=== PATIENT | male | born 1940 | race Caucasian/White ===

== ENCOUNTER 2021-08-10 09:46 | Day surgery (SDC) | payer MEDICARE, OTHER ==
[2021-08-09 12:30] LABS: BASOPHILS % (AUTO) 0.7 % (0-1); EOSINOPHILS # (AUTO) 0.3 X10'3 (0-0.9); EOSINOPHILS % (AUTO) 6.2 % (0-6); HEMATOCRIT 36.4 % (42.0-52.0); HEMOGLOBIN 11.8 g/dl (14.0-17.9); LYMPHOCYTES % (AUTO) 18.9 % (21-51); MEAN CORPUSCULAR HGB CONC 32.3 g/dL (33.0-36.5); MEAN PLATELET VOLUME 9.3 FL (7.4-10.4); MONOCYTES # (AUTO) 0.5 X10'3 (0-0.9); MONOCYTES % (AUTO) 10.1 % (2-12); NEUTROPHILS # (AUTO) 3.4 X10'3 (1.8-7.7); NEUTROPHILS % (AUTO) 64.1 % (42-75); PLATELET COUNT 186 X10'3 (140-440); RED BLOOD COUNT 3.79 X10'6 (4.70-6.10); RED CELL DISTRIBUTION WIDTH 17.2 % (11.5-14.5); WHITE BLOOD COUNT 5.4 X10'3 (4.5-11.0)
[2021-08-09 12:38] LABS: ALBUMIN 3.6 G/DL (3.4-5.0); ANION GAP 9 (8-16); BLOOD UREA NITROGEN 31 MG/DL (7-18); BUN/CREATININE RATIO 18.2 (5.4-32.0); CALCIUM 8.7 MG/DL (8.5-10.1); CHLORIDE 109 MMOL/L (99-107); GLUCOSE 108 MG/DL (70-104); POTASSIUM 4.6 MMOL/L (3.5-5.1); SODIUM 146 MMOL/L (135-145); TOTAL CARBON DIOXIDE 28.4 MMOL/L (24-32); eGFR 39 ML/MIN
[2021-08-09 12:42] LABS: PARTIAL THROMBOPLASTIN TIME 28 SECONDS (22-32)
[~2021-08-10] VITALS: Ht 190.5 cm; Wt 147.3 kg
[2021-08-10] VITALS (10 sets, daily range): BP systolic 133–164; BP diastolic 45–96
[2021-08-10] MEDS ORDERED: LIDOcaine/PRILOcaine 5gm cream TP ONE (09:57)
[2021-08-10] MEDS ORDERED: sodium bicarbonate (8.4%) inj. 150 ML in dextrose 5%-water 1,000 ML IV ONE (10:00)
[2021-08-10] MEDS ORDERED: normal saline 1,000 ML IV SCH (10:00)
[2021-08-10] MEDS ORDERED: LORazepam 0.5 MG tablet PO PRN (10:00)
[2021-08-10] MEDS ORDERED: diphenhydrAMINE 25mg capsule PO PRN (10:00)
[2021-08-10] MEDS ORDERED: acetylcysteine 200 MG/ml 4ml vial PO PRN (10:05)
[2021-08-10] MEDS ORDERED: ATEN25TA PO (10:10)
[2021-08-10] MEDS ORDERED: SIMV-45 PO (10:10)
[2021-08-10] MEDS ORDERED: ALLO300T8 PO (10:10)
[2021-08-10] MEDS ORDERED: HYDR-3972 PO (10:10)
[2021-08-10] MEDS ORDERED: VITAMIN C (10:10)
[2021-08-10] MEDS ORDERED: LEVO200T PO (10:10)
[2021-08-10] MEDS ORDERED: ENAL10TA19 PO (10:10)
[2021-08-10] MEDS ORDERED: POTA10TA36 PO (10:10)
[2021-08-10] MEDS ORDERED: FURO40TA4 PO (10:10)
[2021-08-10] MEDS ORDERED: WARF-55 PO (10:10)
[2021-08-10] MEDS ORDERED: ROPI2TAB7 PO (10:10)
[2021-08-10] MEDS ORDERED: nitroGLYCERIN-Tridil 50MG/D5W 250 ML IV ONE (12:56)
[2021-08-10] MEDS ORDERED: verapamil 2.5 mg/ml inj IV ONE (12:56)
[2021-08-10] MEDS ORDERED: midazolam 1 mg/ML 2ml injection ONE (12:56)
[2021-08-10] MEDS ORDERED: fentaNYL/PF 50MCG/1 ML 2ML syringe ONE (12:56)
[2021-08-10] MEDS ORDERED: iohexol 350MG/ML 100ml bottle IV ONE (12:57)
[2021-08-10] MEDS ORDERED: iohexol 350 MG/ML 50ML vial IV ONE (12:57)
[2021-08-10] MEDS ORDERED: LIDOcaine 1% (10mg/ml)w/preservative injection 20ml MDV ONE (12:57)
[2021-08-10] MEDS ORDERED: heparin 1,000unit/ml 10ml vial 10 ML ONE (12:57)
[2021-08-10] MEDS ORDERED: FLU VACC QS2021-22(6MOS UP)/PF 60 MCG/0.5 ML SYRINGE IM ONE (13:45)
[2021-08-10 15:06] LABS: ISTAT HGB ART 10.5 g/dl (14.0-18.0); ISTAT Hct ART 31 %PCV (42-52); ISTAT O2 SATURATION ARTERIAL 99 % (95-98); ISTAT SOURCE ART
[2021-08-10] MEDS ORDERED: sodium bicarbonate (8.4%) inj. 150 MEQ in dextrose 5%-water 1,000 ML IV ONE (15:35)
[2021-08-15 06:10] LABS: ISTAT Hct MIX 33 %PCV (42-52); ISTAT O2 SATURATION MIX VENOUS 66 % (60-80); ISTAT SOURCE VEN
== END 2021-08-10 20:35 | disposition home or self-care (01) ==
LOC: SSTAY O 09:46
PROVIDERS: ATTEND Internal Medicine Cardiovascular Disease
DX: R94.39 Abnormal result of other cardiovascular function study (principal); I25.10 Atherosclerotic heart disease of native coronary artery without angina pectoris; I10 Essential (primary) hypertension; E78.49 Other hyperlipidemia; I48.20 Chronic atrial fibrillation, unspecified; G47.30 Sleep apnea, unspecified; Z95.0 Presence of cardiac pacemaker; Z99.81 Dependence on supplemental oxygen; Z79.01 Long term (current) use of anticoagulants; Z79.899 Other long term (current) drug therapy; Z98.890 Other specified postprocedural states; Z87.891 Personal history of nicotine dependence; Z96.653 Presence of artificial knee joint, bilateral; Z80.8 Family history of malignant neoplasm of other organs or systems
CPT/HCPCS: 36415; 76937; 80048; 82803; 85014; 85025; 85610; 85730; 93005; 93460; 99152; 99153; C1751; C1760; C1769; C1894; J1644; J2001; J2250; J3010; Q0163; Q9967; A6258; J3490

== ENCOUNTER 2022-04-19 10:32 | Emergency (ER) | payer MEDICARE, OTHER ==
[~2022-04-19] VITALS: Ht 193 cm; Wt 136.4 kg
[~2022-04-19 10:32] MED LIST: ALLO300T8 PO; ATEN25TA PO; ENAL10TA19 PO; FURO40TA4 PO; HYDR-3972 PO; LEVO200T PO; POTA10TA37 PO; ROPI2TAB7 PO; SIMV-45 PO; VITAMIN C; WARF-55 PO
[2022-04-19 11:20] VITALS: BP 156/87
[2022-04-19] MEDS ORDERED: oxymetazoline 15 ML nasal spray NS ONE (11:40)
[2022-04-19] MEDS ORDERED: tranexamic acid 100mg/ml inj. TP ONE (11:40)
[2022-04-19] MEDS ORDERED: silver nitrate applicator stick TP ONE (13:15)
== END 2022-04-19 14:01 | disposition home or self-care (01) ==
LOC: ER 10:32
DX: R04.0 Epistaxis (principal); I48.91 Unspecified atrial fibrillation; Z87.440 Personal history of urinary (tract) infections; Z98.890 Other specified postprocedural states; Z79.899 Other long term (current) drug therapy
CPT/HCPCS: 30901; 99284; J3490

== ENCOUNTER 2022-06-17 11:40 | Emergency (ER) | payer MEDICARE, OTHER ==
[~2022-06-17] VITALS: Ht 195.6 cm; Wt 136.4 kg
[~2022-06-17 11:40] MED LIST changes: +POTA-206 PO; -POTA10TA37 PO
[2022-06-17 12:08] VITALS: BP 143/61
[2022-06-17] MEDS ORDERED: proparacaine 0.5% ophthalmic drops 15ml LEFTEYE ONE (14:50)
[2022-06-17] MEDS ORDERED: erythromycin ophthalmic ointment 1gm tube LEFTEYE ONE (15:50)
[2022-06-17] MEDS ORDERED: ERYT1OIN6 RIGHTEYE (16:37)
== END 2022-06-17 16:53 | disposition home or self-care (01) ==
LOC: ER 11:41
DX: S05.01XA Injury of conjunctiva and corneal abrasion without foreign body, right eye, initial encounter (principal); H57.12 Ocular pain, left eye; I48.91 Unspecified atrial fibrillation; Z87.440 Personal history of urinary (tract) infections; Z98.890 Other specified postprocedural states; Z79.899 Other long term (current) drug therapy; X58.XXXA Exposure to other specified factors, initial encounter; Y93.89 Activity, other specified; Y92.89 Other specified places as the place of occurrence of the external cause; Y99.8 Other external cause status
CPT/HCPCS: 99283

== ENCOUNTER 2022-07-08 14:10 | Emergency (ER) | payer MEDICARE, OTHER ==
[~2022-07-08] VITALS: Ht 190.5 cm; Wt 140.9 kg
[2022-07-08 15:43] LABS: BASOPHILS % (AUTO) 0.4 % (0-1); EOSINOPHILS # (AUTO) 0.1 X10'3 (0-0.9); EOSINOPHILS % (AUTO) 0.6 % (0-6); HEMATOCRIT 30.3 % (42.0-52.0); HEMOGLOBIN 9.7 g/dl (14.0-17.9); LYMPHOCYTES # (AUTO) 0.7 X10'3 (1.1-4.8); LYMPHOCYTES % (AUTO) 6.1 % (21-51); MEAN CORPUSCULAR HEMOGLOBIN 29.3 PG (27.0-31.0); MEAN CORPUSCULAR HGB CONC 32.1 g/dL (33.0-36.5); MEAN CORPUSCULAR VOLUME 91.2 FL (78-98); MEAN PLATELET VOLUME 9.2 FL (7.4-10.4); MONOCYTES # (AUTO) 0.8 X10'3 (0-0.9); MONOCYTES % (AUTO) 7.1 % (2-12); NEUTROPHILS # (AUTO) 10.2 X10'3 (1.8-7.7); NEUTROPHILS % (AUTO) 85.8 % (42-75); PLATELET COUNT 146 X10'3 (140-440); RED BLOOD COUNT 3.32 X10'6 (4.70-6.10); RED CELL DISTRIBUTION WIDTH 16.8 % (11.5-14.5); WHITE BLOOD COUNT 11.9 X10'3 (4.5-11.0)
[2022-07-08 15:54] LABS: ALANINE AMINOTRANSFERASE 27 U/L (12-78); ALBUMIN 3.6 G/DL (3.4-5.0); ALBUMIN/GLOBULIN RATIO 1.2 (1.1-1.5); ALKALINE PHOSPHATASE 82 IU/L (46-116); ANION GAP 11 (8-16); ASPARTATE AMINO TRANSFERASE 19 U/L (10-37); BILIRUBIN,TOTAL 0.8 MG/DL (0.1-1.0); BLOOD UREA NITROGEN 51 MG/DL (7-18); BUN/CREATININE RATIO 19.8 (5.4-32.0); CALCIUM 8.6 MG/DL (8.5-10.1); CHLORIDE 103 MMOL/L (99-107); CREATININE 2.58 MG/DL (0.60-1.10); GLUCOSE 109 MG/DL (70-104); POTASSIUM 4.1 MMOL/L (3.5-5.1); SODIUM 141 MMOL/L (135-145); TOTAL CARBON DIOXIDE 26.7 MMOL/L (24-32); TOTAL PROTEIN 6.7 G/DL (6.4-8.2); eGFR 24 ML/MIN
[2022-07-08 16:03] LABS: MAGNESIUM 2.6 MG/DL (1.5-2.4)
[2022-07-08 19:08] VITALS: BP 128/51
== END 2022-07-08 20:12 | disposition home or self-care (01) ==
LOC: ER 14:11
DX: S93.402A Sprain of unspecified ligament of left ankle, initial encounter (principal); M25.572 Pain in left ankle and joints of left foot; I48.91 Unspecified atrial fibrillation; M19.90 Unspecified osteoarthritis, unspecified site; G89.29 Other chronic pain; Z87.440 Personal history of urinary (tract) infections; Z98.890 Other specified postprocedural states; Z79.899 Other long term (current) drug therapy; X58.XXXA Exposure to other specified factors, initial encounter; Y93.89 Activity, other specified; Y92.89 Other specified places as the place of occurrence of the external cause; Y99.8 Other external cause status
CPT/HCPCS: 29515; 36415; 71045; 73610; 80053; 83735; 83880; 84484; 85025; 93005; 99285

== ENCOUNTER 2022-07-11 21:48 | Emergency (ER) | payer MEDICARE, OTHER ==
[~2022-07-11] VITALS: Ht 193 cm; Wt 136.4 kg
[2022-07-11 22:20] LABS: BASOPHILS % (AUTO) 0.3 % (0-1); EOSINOPHILS % (AUTO) 0.5 % (0-6); HEMATOCRIT 29.8 % (42.0-52.0); HEMOGLOBIN 9.8 g/dl (14.0-17.9); LYMPHOCYTES # (AUTO) 0.6 X10'3 (1.1-4.8); LYMPHOCYTES % (AUTO) 7.4 % (21-51); MEAN CORPUSCULAR HEMOGLOBIN 29.7 PG (27.0-31.0); MEAN CORPUSCULAR VOLUME 90.2 FL (78-98); MEAN PLATELET VOLUME 8.3 FL (7.4-10.4); MONOCYTES # (AUTO) 1.3 X10'3 (0-0.9); MONOCYTES % (AUTO) 16.1 % (2-12); NEUTROPHILS # (AUTO) 5.9 X10'3 (1.8-7.7); NEUTROPHILS % (AUTO) 75.7 % (42-75); PLATELET COUNT 204 X10'3 (140-440); RED BLOOD COUNT 3.31 X10'6 (4.70-6.10); RED CELL DISTRIBUTION WIDTH 16.7 % (11.5-14.5); WHITE BLOOD COUNT 7.8 X10'3 (4.5-11.0)
[2022-07-11 22:33] LABS: ALANINE AMINOTRANSFERASE 45 U/L (12-78); ALBUMIN/GLOBULIN RATIO 0.8 (1.1-1.5); ALKALINE PHOSPHATASE 208 IU/L (46-116); ANION GAP 10 (8-16); ASPARTATE AMINO TRANSFERASE 42 U/L (10-37); BILIRUBIN,TOTAL 0.8 MG/DL (0.1-1.0); BLOOD UREA NITROGEN 56 MG/DL (7-18); CALCIUM 8.9 MG/DL (8.5-10.1); CHLORIDE 103 MMOL/L (99-107); CREATININE 2.24 MG/DL (0.60-1.10); GLUCOSE 143 MG/DL (70-104); LIPASE 86 U/L (73-393); POTASSIUM 4.8 MMOL/L (3.5-5.1); SODIUM 139 MMOL/L (135-145); TOTAL CARBON DIOXIDE 26.4 MMOL/L (24-32); TOTAL PROTEIN 6.8 G/DL (6.4-8.2); eGFR 28 ML/MIN
[2022-07-11 23:29] LABS: TOTAL CELLS COUNTED 100
[2022-07-11 23:30] LABS: ANISOCYTOSIS 1+; PLATELET ESTIMATE NORMAL
--- NOTE | 2022-07-12 02:16 | NUR ---
PT VOID 1700 ML VIA [employer]HETER
[2022-07-12 02:24] LABS: CLARITY,URINE CLEAR (Clear); COLOR,URINE YELLOW (Yellow); GLUCOSE, URINE NEGATIVE (Neg); KETONES,URINE NEGATIVE (Neg); LEUKOCYTE ESTERASE ,URINE NEGATIVE (Neg); NITRITES, URINE NEGATIVE (Neg); OCCULT BLOOD,URINE MODERATE (Neg); PH,URINE 5.5 (4.8-8.0); PROTEIN,URINE TRACE mg/dl (Neg); UROBILINOGEN,URINE 0.2 E.U/dL (0.2-1.0)
[2022-07-12 02:26] LABS: UA COLLECTION TYPE FOLEY CATH
[2022-07-12 02:32] LABS: BACTERIA,URINE FEW /HPF (Neg); RBC,URINE 20-50 /HPF (0-2); SQUAMOUS EPITHELIAL CELL,UR FEW /LPF (FEW)
[2022-07-12 02:36] LABS: WBC,URINE 0-4 /HPF (0-4)
[2022-07-12] MEDS ORDERED: FLO0.4C PO (02:38)
[2022-07-12 02:57] VITALS: BP 134/51
== END 2022-07-12 03:07 | disposition home or self-care (01) ==
LOC: ER 21:49
DX: N18.9 Chronic kidney disease, unspecified (principal); R33.9 Retention of urine, unspecified; R10.30 Lower abdominal pain, unspecified; R19.7 Diarrhea, unspecified; Z79.899 Other long term (current) drug therapy; Z79.1 Long term (current) use of non-steroidal anti-inflammatories (NSAID)
CPT/HCPCS: 36415; 51702; 80053; 81001; 83690; 85007; 85025; 85610; 99284; A4314; A4340; A4358

== ENCOUNTER 2024-05-16 08:39 | Emergency (ER) | payer MEDICARE, OTHER ==
[~2024-05-16] VITALS: Ht 193 cm; Wt 125.0 kg
[~2024-05-16 08:39] MED LIST changes: +ATOR40TA72 PO; +CALC500T63 PO; +CHOL400T8 PO; +CYAN50009 PO; +ENAL-78 PO; -ENAL10TA19 PO; +FERR-29 PO; +FLO0.4C PO; +LEVO125T8 PO; -LEVO200T PO; +MULT-1219 PO; +ROPI2TAB53 PO; -ROPI2TAB7 PO; -SIMV-45 PO; -VITAMIN C
[2024-05-16 08:59] VITALS: TEMP 97.8
[2024-05-16 11:28] VITALS: BP 143/73; PULSE 64; RESP 16; O2SAT 100
== END 2024-05-16 11:32 | disposition home or self-care (01) ==
LOC: ER 08:40
DX: M25.552 Pain in left hip (principal); I48.91 Unspecified atrial fibrillation; M19.90 Unspecified osteoarthritis, unspecified site; G89.29 Other chronic pain; Z79.899 Other long term (current) drug therapy; Z79.2 Long term (current) use of antibiotics
CPT/HCPCS: 73502; 99284